=== PATIENT | female | born 1990 | race African-American/Black ===

== ENCOUNTER 2020-11-01 07:00 | Emergency (ER) | payer OTHER, SELFPAY ==
--- NOTE | ~2020-11-01 | XR_ITS ---
EXAMINATION: XR FOOT, LEFT CLINICAL INFORMATION: Foreign body in the left foot. COMPARISON: None TECHNIQUE: AP, lateral, and oblique views of the left foot. FINDINGS: The bones and soft tissues are normal. No fracture. Alignment is anatomic. Joint spaces are maintained. No radiopaque foreign body seen in the left foot. XR/XR foot LT 2V IMPRESSION: Unremarkable left foot exam with no radiopaque foreign body visualized along the plantar surface. No gross bony abnormality.
[2020-11-01 07:20] VITALS: BP 145/82; PULSE 85; RESP 18; TEMP 36.9; O2SAT 100; BMI 30.9
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
== END 2020-11-01 09:38 | disposition home or self-care (01) ==
PROVIDERS: Emergency Provider Emergency Medicine Emergency Medical Services
DX: S91.332A Puncture wound without foreign body, left foot, initial encounter (principal); W25.XXXA Contact with sharp glass, initial encounter; Y93.9 Activity, unspecified; Y92.9 Unspecified place or not applicable; Y99.9 Unspecified external cause status
CPT/HCPCS: 73620; 99283

== ENCOUNTER 2022-10-03 08:42 | Emergency (ER) | payer OTHER, SELFPAY ==
[2022-10-03 08:52] VITALS: BP 142/75; PULSE 68; RESP 16; TEMP 36.8; O2SAT 99; BMI 28.0
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
[2022-10-03 10:25] VITALS: BP 112/62; PULSE 72; RESP 17; O2SAT 98
== END 2022-10-03 10:31 | disposition home or self-care (01) ==
PROVIDERS: Emergency Provider Emergency Medicine
DX: S05.02XA Injury of conjunctiva and corneal abrasion without foreign body, left eye, initial encounter (principal); W50.0XXA Accidental hit or strike by another person, initial encounter; Y93.71 Activity, boxing; Y92.9 Unspecified place or not applicable; Y99.9 Unspecified external cause status
CPT/HCPCS: 99283; 99284

== ENCOUNTER 2023-07-27 16:22 | Emergency (ER) | payer OTHER, SELFPAY ==
[2023-07-27 16:50] VITALS: BP 113/63; PULSE 65; RESP 18; TEMP 36.7; O2SAT 97; BMI 30.9
--- NOTE | 2023-07-27 16:52 | ED.ABDPAIN ---
HPI - Abdominal Pain General Chief Complaint: Nausea/Vomiting/Diarrhea Stated Complaint: Stomach discomfort/vomiting phlem Time Seen by Provider: 07/27/23 18:18 Source: patient Mode of arrival: ambulatory Limitations: no limitations History of Present Illness HPI narrative: 33-year-old female with no significant past medical history presents to emergency department with concerns for two episodes of vomiting 'yellow stuff'. 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 Denies current nausea, abdominal pain, dysuria. Reports she currently has her menses and denies chance of Pertinent positives and negatives discussed in the HPI Related Data Previous Rx's ?Medication ?Instructions ?Recorded cephalexin 500 mg capsule 500 mg PO Q6H 3 days #12 caps 11/01/20 ibuprofen 600 mg tablet 600 mg PO Q8H PRN pain #20 tabs 11/01/20 erythromycin 5 mg/gram (0.5 %) eye 0.5 inch ophthalmic (eye) BID #3.5 10/03/22 ointment grams ibuprofen 600 mg tablet 600 mg PO Q8H PRN pain #30 tabs 10/03/22 Allergies Allergy/AdvReac Type Severity Reaction Status Date / Time No Known Allergies Allergy Verified 07/27/23 16:55 [No Known Allergies*] Review of Systems Review of Systems Yes all other systems are reviewed and are negative [facility] Past Medical History Medical History No known health problems Social History Social History Advance Directives: No Advance Directives Information Provided: No Do you have a plan to hurt others: No Plan Physical Exam ED Vital Signs: BMI result Body Mass Index 30.9 Nursing notes and vital signs reviewed. GENERAL APPEARANCE: A&0 x 4, generally well appearing, no acute distress HENMT: Normal to inspection, atraumatic, face symmetrical. Normal external ears, nose, and oropharynx clear. EYE: PERRLA, EOM intact, structures appear normal NECK: Supple without stiffness or restricted ROM. HEART: Normal rate and regular rhythm, normal S1/S2, no M/R/G LUNGS: LS CTA, moving air well. Able to speak in complete sentences. No crackles, wheezes, or rhonchi auscultated BACK: No CVAT, no obvious deformity EXTREMITIES: Moving all extremities without difficulty. Normal capillary refill. NEUROLOGICAL: Alert and oriented, moving all 4 extremities with equal strength. CN not formally tested but appearing grossly intact. Observed to ambulate with normal gait. Cognition normal SKIN: Warm and dry without any lesions, rash, or visible sores Medical Decision Making Medical Decision Making MDM Narrative: Old records reviewed for previous imaging, lab studies, ECGs, and notes. Patient was assessed the emergency department with no acute distress or toxicity noted. Nasal serology negative for COVID, flu, and RSV. Patient's symptoms are consistent with acute nausea and vomiting most likely due to a virus. Patient educated to increase fluid intake prevent dehydration. Patient is safe for discharge at this time with plan for [id number] Tylenol and/or NSAID such as ibuprofen or naproxen for fever/discomfort with dosing as per packaging. HPI, PE, diagnostics, and plan discussed with patient and family with no unanswered questions at this time. Strict return precautions given to return to the emergency department with new, worsening, or concerning emergent symptoms. Recommended to follow-up with there primary care provider in 24-48 hours for further treatment and management. Differential Diagnosis Differential Diagnoses: The differential diagnosis associated with the presentation includes But not limited to gastroenteritis, viral syndrome, SBO, perforation, sepsis, malignancy Lab Data [facility] Lab Attestation statement: I reviewed the patient's lab results. Labs: Lab Results 07/27/23 Range/Units 17:24 Influenza Type A (PCR) NEGATIVE (Negative) Influenza Type B (PCR) NEGATIVE (Negative) RSV RNA Qual (PCR) NEGATIVE (Negative) SARS-CoV-2 RNA (RT-PCR) NEGATIVE (Negative) Prescription Management I considered prescription management with: Antibiotic Was considered but no evidence of bacterial infection was identified Discharge Plan Discharge Clinical Impression: Nausea & vomiting Patient Disposition: Home, Self-Care Instructions: Acute Nausea and Vomiting (ED) Prescriptions: No Action ibuprofen 600 mg tablet 600 mg PO Q8H PRN (Reason: pain) Qty: 20 0RF cephalexin 500 mg capsule 500 mg PO Q6H 3 Days Qty: 12 0RF erythromycin 5 mg/gram (0.5 %) ointment 0.5 inch ophthalmic (eye) BID Qty: 3.5 0RF ibuprofen 600 mg tablet 600 mg PO Q8H PRN (Reason: pain) Qty: 30 0RF [place] [facility] [place] [facility] [place] [facility] [place] [facility] [place] [facility] [place] Stand Alone Forms: Work/School Release Discharge Date/Time: 07/27/23 18:21 Print Language: Citizen Of [place]
[2023-07-27 18:08] LABS: Influenza A PCR NEGATIVE (Negative); Influenza B PCR NEGATIVE (Negative); Resp Syncy Virus RNA Qual PCR NEGATIVE (Negative); SARS COV2 PCR INHOUSE NEGATIVE (Negative)
== END 2023-07-27 18:21 | disposition home or self-care (01) ==
PROVIDERS: Nurse Practitioner Family; Emergency Provider Student in an Organized Health Care Education/Training Program
DX: R11.2 Nausea with vomiting, unspecified (principal)
CPT/HCPCS: 0241U; 99281; 99283

== ENCOUNTER 2023-09-30 08:37 | Emergency (ER) | payer OTHER, SELFPAY ==
[2023-09-30 08:43] VITALS: BP 127/81; PULSE 79; RESP 14; TEMP 36.9; O2SAT 97; BMI 30.5
--- NOTE | 2023-09-30 09:12 | ED.GENADULT ---
HPI - General Adult General Chief complaint: General Medical Stated complaint: Hemorrhoid Time Seen by Provider: 09/30/23 09:12 Source: patient Mode of arrival: ambulatory Limitations: no limitations History of Present Illness ED Provider: FAMILIA Mendoza HPI narrative: 33 yo f hx of hemorrhoids presents with pain around her rectum X 1 week gradually improving. Reports hx of hemorrhoids and this feels like her typical. She has been soaking it and doing sitz baths with improvement of symptoms. Reports she gets them becuase she is lactose intolerant and eats lactose. Denies rectal bleeding or penetrating trauma. No fevers, chills. No fb in rectum Related Data Previous Rx's ?Medication ?Instructions ?Recorded cephalexin 500 mg capsule 500 mg PO Q6H 3 days #12 caps 11/01/20 ibuprofen 600 mg tablet 600 mg PO Q8H PRN pain #20 tabs 11/01/20 erythromycin 5 mg/gram (0.5 %) eye 0.5 inch ophthalmic (eye) BID #3.5 10/03/22 ointment grams ibuprofen 600 mg tablet 600 mg PO Q8H PRN pain #30 tabs 10/03/22 naproxen 500 mg tablet 500 mg PO BID PRN pain #14 tabs 09/30/23 pramoxine 1 % topical foam 1 appl [place] TID #15 grams 09/30/23 (Proctofoam) Allergies Allergy/AdvReac Type Severity Reaction Status Date / Time No Known Allergies Allergy Verified 09/30/23 08:46 [No Known Allergies*] Review of Systems Review of Systems: Yes all other systems are reviewed and are negative PMFSH Past Medical History Attestation statement: The following information was validated with the patient. Source: old records reviewed and nursing notes reviewed Medical History No known health problems Social History Social History Advance Directives: No Advance Directives Information Provided: Yes Physical Exam ED Vital Signs: Vital Signs - 24 hr 09/30/23 08:43 Temperature 98.5 F Pulse Rate 79 Respiratory Rate 14 Blood Pressure 127/81 Pulse Oximetry 97 Oxygen Delivery Method Room Air BMI result Body Mass Index 30.5 vss Appearance: Alert.? Oriented X3.? No acute cardiopulmonary distress distress.? Head: Normocephalic, atraumatic, no step-offs or deformities Neck: Normal inspection.? Neck supple.? CVS: Pulses normal.? Respiratory: No respiratory distress.? Skin: ? Normal skin color. Sensitive: Giuliana OWEN at bedside small external nonthrombosed hemorrhoid to the 3 ocklock position. Non tender to palpation. Extremities: 5/5 strength to bilateral upper and lower extremities Back: No midline tenderness, no C-spine tenderness, full range of motion, No CVA tenderness bilaterally Neuro: Oriented X 3.? No motor deficit.? No sensory deficit. Course Reevaluation(s) Reevaluation #1: advised to return w/ new or worsening sx. Medical Decision Making Medical Decision Making MDM Narrative: 33 yo f presents w/ concerns of rectal pain PE- Sensative exam Giuliana OWEN at bedside small external nonthrombosed hemorrhoid to the 3 ocklock position. Non tender to palpation. Hx and pe concenring for external non thrombosed hemorrhoids. No signs of FB in rectum. No signs of lower GI bleed or thrombosed hemorrhoid. No signs of infection or forniers Plan- supportive measures and general surgery follow up. Differential Diagnosis Differential Diagnoses: The differential diagnosis associated with the presentation includes Hx and pe concenring for external non thrombosed hemorrhoids. No signs of FB in rectum. No signs of lower GI bleed or thrombosed hemorrhoid. No signs of infection or forniers Admission/Observation Consideration of admission/observation: Escalation of care including admission/observation considered Prescription Management I considered prescription management with: Other (proctofoam ) Discharge Plan Discharge Clinical Impression: External hemorrhoids Patient Disposition: Home, Self-Care Instructions: Hemorrhoids (ED), Sitz Bath (DC), Hemorrhoidectomy (DC) Additional Instructions: Take your medications as prescribed. If you were prescribed antibiotics today, it is important that you take your medication to their entirety, do not skip any doses, do not finish them early. Follow-up with your primary care provider this week. Return to the emergency department with new or worsening symptoms. In case of emergency call 911 Prescriptions are at [facility] Prescriptions: New pramoxine [Proctofoam] 1 % foam 1 appl [place] TID Qty: 15 2RF naproxen 500 mg tablet 500 mg PO BID PRN (Reason: pain) Qty: 14 0RF Rx Instructions: Take with food No Action ibuprofen 600 mg tablet 600 mg PO Q8H PRN (Reason: pain) Qty: 20 0RF cephalexin 500 mg capsule 500 mg PO Q6H 3 Days Qty: 12 0RF erythromycin 5 mg/gram (0.5 %) ointment 0.5 inch ophthalmic (eye) BID Qty: 3.5 0RF ibuprofen 600 mg tablet 600 mg PO Q8H PRN (Reason: pain) Qty: 30 0RF Referrals: [facility] [place] [facility] [Provider Group] - 2 days Physician,Unknown J [Primary Care Provider] - 2 days Stand Alone Forms: Work/School Release Print Language: [place]
[2023-09-30 09:35] VITALS: BP 122/87; PULSE 80; RESP 16; TEMP 36.4; O2SAT 97
== END 2023-09-30 09:37 | disposition home or self-care (01) ==
PROVIDERS: Emergency Provider Emergency Medicine
DX: K64.4 Residual hemorrhoidal skin tags (principal)
CPT/HCPCS: 99282; 99283